=== PATIENT | male | born 1960 | race Caucasian/White ===

== ENCOUNTER 2019-02-13 20:45 | Inpatient (IN) | payer OTHER ==
[~2019-02-13] VITALS: Ht 165.1 cm; Wt 77.1 kg
[~2019-02-13 20:45] MED LIST: AMLO5TAB4 PO; ASPI-817 PO; ATOR20TA38 PO; BUPR300T4 PO; DOCU250C58 PO; DORZ10DR5 BOTH EYES; DULO30CA47 PO; HYDR-845 PO; HYDR25TA6 PO; INSU100I33 SC; ISOS30TA67 PO; LATA2.5D2 BOTH EYES; LISI10TA2 PO; METO-429 PO; NICO-546 TD; NICO2GUM46 BUCCAL; NOVO3I SC; TIMO5DRO30 BOTH EYES
[2019-02-13] MEDS ORDERED: SOD CHLORIDE 0.9% 750 ML IV ONE (21:00)
--- NOTE | 2019-02-13 21:10 | ERD ---
ER Documentation Chief Complaint Chief Complaint [id number] fr bus stop: 10d of 'not feeling well', no appet, NV. FS>100 in rig HPI 58-year-old male history of diabetes was found to have a stop today patient states he has been feeling weak for the past several days. States he is diabetic. Unclear if he is compliant with his medications. Patient denies any nausea or vomiting but does endorse shortness of breath, denies any chest pain, abdominal pain dysuria or diarrhea. No recent travel or infections or antibiotics. Per EMS his blood glucose was read as extremely high in the field. ROS All systems reviewed and are negative except as per history of present illness. Allergies Allergies: Coded Allergies: Penicillins (Verified Allergy, Unknown, 02/13/19) PMhx/Soc Medical and Surgical Hx: pt denies Surgical Hx Hx Cardiac Disorders: Yes (HTN, cholesterol) Hx Alcohol Use: No Hx Substance Use: No Hx Tobacco Use: Yes Smoking Status: Current every day smoker Physical Exam Vitals Vital Signs Date Temp Pulse Resp B/P (MAP) Pulse Ox O2 O2 Flow FiO2 Time Delivery Rate 02/13/19 98.1 96 20 92/61 (71) 94 20:53 Physical Exam Const: No acute distress Head: Atraumatic Eyes: Normal Conjunctiva ENT: Normal External Ears, Nose and Mouth. Neck: Full range of motion. No meningismus. Resp: Clear to auscultation bilaterally Cardio: Regular rate and rhythm, no murmurs Abd: Soft, non tender, non distended. Normal bowel sounds Skin: No petechiae or rashes Back: No midline or flank tenderness Ext: No cyanosis, or edema Neur: Awake and alert Psych: Normal Mood and Affect Result Diagram: 02/13/19210802/13/192108 Results 24 hrs Laboratory Tests Test 02/13/19 20:57 02/13/19 21:09 02/13/19 21:13 Blood Gas Specimen Source Blood venous Arterial Blood Date Drawn 02/13/2019 9:03:41 PM Arterial Blood Gas VENOUS LINE Puncture Site Evgeny Test ACCEPTAB Venous Blood pH 7.341 Venous Blood pCO2 31.5 mmHG (Temp Corrected) Venous Blood pO2 36.9 mmHG (Temp Corrected) Venous Blood HCO3 16.7 mmol/L Venous Blood Oxygen 68.7 mmHG Saturation Venous Blood Base Excess -7.8 mmol/L Venous Blood Total Hemoglobin 15.5 g/dl Venous Blood Oxyhemoglobin 66.8 % Venous Blood Methemoglobin 0.2 % Carboxyhemoglobin 2.5 % Blood Gas Temperature 37.0 C Blood Gas Modality ROOM AIR FiO2 21.0 % Blood Gas Notified Whom MM Blood Gas Notified Time 02/13/2019 9:09:36 PM White Blood Count 6.0 10^3/ul Red Blood Count 4.74 10^6/ul Hemoglobin 14.7 g/dl Hematocrit 43.2 % Mean Corpuscular Volume 91.1 fl Mean Corpuscular Hemoglobin 31.0 pg Mean Corpuscular 34.0 g/dl Hemoglobin Concent Red Cell Distribution Width 11.9 % Platelet Count 153 10^3/UL Mean Platelet Volume 11.7 fl Immature Granulocytes % 0.700 % Neutrophils % 58.6 % Lymphocytes % 33.2 % Monocytes % 6.7 % Eosinophils % 0.5 % Basophils % 0.3 % Nucleated Red Blood Cells % 0.0 /100WBC Immature Granulocytes # 0.040 10^3/ul Neutrophils # 3.5 10^3/ul Lymphocytes # 2.0 10^3/ul Monocytes # 0.4 10^3/ul Eosinophils # 0.0 10^3/ul Basophils # 0.0 10^3/ul Nucleated Red Blood Cells # 0.0 10^3/ul Sodium Level 127 mmol/L Potassium Level 3.5 mmol/L Chloride Level 80 mmol/L Carbon Dioxide Level 16 mmol/L Anion Gap 31 Blood Urea Nitrogen 22 mg/dl Creatinine 1.50 mg/dl Est Glomerular Filtrat 48 mL/min Rate mL/min Glucose Level 835 mg/dl Calcium Level 9.2 mg/dl Phosphorus Level 4.3 mg/dl Magnesium Level 2.1 mg/dl Bedside Glucose > 595 mg/dL Current Medications Medications Dose Sig/Suzanne Start Time Status Last (Trade) Ordered Route PRN Stop Time Admin Dose Reason Admin Sodium 750 ml @ ONCE ONCE 02/13/19 DC 02/13/19 Chloride 750 mls/hr IV 21:00 02/13/19 21:12 21:59 Potassium 1,000 ml @ Q0M IV 02/13/19 DC Chloride/Sodi 0 mls/hr 22:08 02/13/19 um Chloride 22:11 Potassium 1,000 ml @ Q0M IV 02/13/19 DC Chloride/Dext 0 mls/hr 22:08 02/13/19 diana/ Sod Cl 22:11 Insulin 101 ml @ ER DKA 02/13/19 DC Human 7.58 mls/hr PROTOCOL IV 22:30 02/13/19 Regular 100 22:30 unit/ Sodium Chloride Lactated 750 ml @ ONCE ONCE 02/13/19 DC Ringer's 750 mls/hr IV 22:30 02/13/19 22:30 HYPOGLYCEM 02/13/19 DC Miscellaneous HYPOGLYCEMIA PROTOCOL PRN 22:30 02/13/19 TREATMENT XX 22:30 Information .HYPOGLYCEMIA (* PROTOCOL Miscellaneous Pharmacy Order) Dextrose 50 ml Q15M PRN 02/13/19 DC (D50w IV 22:30 02/13/19 Syringe) .DECREASED 22:30 GLUCOSE Dextrose 25 ml Q15M PRN 02/13/19 DC (D50w IV 22:30 02/13/19 Syringe) .DECREASED 22:30 GLUCOSE Procedures/MDM 58-year-old male presenting with weakness and hyperglycemia on labs indicating DKA with elevated anion gap and low bicarb. Will initiate insulin as patient's potassium is above 3.3 fluids and serial lab exams. Will admit patient to ICU. Patient is hemodynamic stable. No clear etiology of trigger unclear if patient is compliant with insulin. No evidence of infection on history or exam JESSICA BILLS MD Feb 13, 2019 21:10
[2019-02-13] MEDS ORDERED: D10/0.45% NACL + KCL 30 MEQ 1,000 ML IV SCH ×2 (22:08→22:12)
[2019-02-13] MEDS ORDERED: NS + KCL 30 MEQ 1,000 ML IV SCH ×2 (22:08→22:12)
[2019-02-13] MEDS ORDERED: DEXTROSE 50% 50 ML SYRINGE IV PRN ×4 (22:30)
[2019-02-13] MEDS ORDERED: INSULIN REGULAR, HUMAN 100 UNIT in SOD CHLORIDE 0.9% 100 ML IV SCH ×4 (22:30)
[2019-02-13] MEDS ORDERED: LACTATED RINGER'S 750 ML IV ONE ×2 (22:30)
[2019-02-14] MEDS ORDERED: CALCIUM GLUCONATE 10% 1 GM in SOD CHLORIDE 0.9% 100 ML IVPB ONE (01:23)
[2019-02-14] MEDS ORDERED: NS + KCL 40 MEQ 1,000 ML IV SCH (01:23)
[2019-02-14] MEDS ORDERED: D10/0.45% NACL + KCL 30 MEQ 1,000 ML IV SCH (01:23)
[2019-02-14] MEDS ORDERED: SOD CHLORIDE 0.9% 1,000 ML IV SCH (01:23)
[2019-02-14] MEDS ORDERED: DEXTROSE 10%/0.45% NACL 1,000 ML IV SCH (01:23)
[2019-02-14] MEDS ORDERED: CALCIUM GLUCONATE 10% 2 GM in SOD CHLORIDE 0.9% 100 ML IVPB ONE (01:23)
[2019-02-14] MEDS ORDERED: D10/0.45% NACL + KCL 40 MEQ 1,000 ML IV SCH (01:23)
[2019-02-14] MEDS ORDERED: SODIUM PHOSPHATE 30 MMOL in SOD CHLORIDE 0.9% 250 ML IV ONE (01:23)
[2019-02-14] MEDS ORDERED: NS + KCL 30 MEQ 1,000 ML IV SCH (01:23)
[2019-02-14] MEDS ORDERED: SODIUM PHOSPHATE 15 MMOL in SOD CHLORIDE 0.9% 250 ML IV ONE (01:23)
[2019-02-14] MEDS ORDERED: MAGNESIUM SULFATE 2 GM/50 ML 50 ML IVPB ONE ×2 (01:30→15:00)
[2019-02-14] MEDS ORDERED: MAGNESIUM SULFATE 1 GM/D5W 100 ML IVPB ONE (01:30)
[2019-02-14] MEDS ORDERED: POTASSIUM CHLORIDE 50 ML IVPB PRN (01:30)
[2019-02-14] MEDS ORDERED: INSULIN REGULAR, HUMAN 100 UNIT in SOD CHLORIDE 0.9% 100 ML IV SCH ×2 (01:30)
[2019-02-14] MEDS ORDERED: DEXTROSE 50% 50 ML SYRINGE IV PRN ×4 (01:30→19:30)
--- NOTE | 2019-02-14 01:40 | QN ---
Documentation Comment H&P dict a/p 1. dka, likely related to poor medication adherence MARY KATE TORRES MD Feb 14, 2019 01:40
--- NOTE | 2019-02-14 03:09 | HP ---
DATE OF ADMISSION: 02/13/2019 CHIEF COMPLAINT: Weakness. HISTORY OF PRESENT ILLNESS: The patient presents to the emergency room at [facility] with a 10-day history of generally feeling unwell with weakness, nausea, abdominal pain. He states that th is has been getting somewhat worse and he went to see his regular doctor and was referred here to the emergency room. PAST MEDICAL HISTORY: Significant for high blood pressure, hyperlipidemia, diabetes. MEDICATIONS: As an outpatient, the patient takes several, but he does not know their names. ALLERGIES: PENICILLIN. SOCIAL HISTORY: The patient lives at home in [place] by himself. Independent of activities of luis y living, not driving. Denies illicit drug use. States he smokes approximately half pack per day, o ccasional alcohol, does not use a cane or walker. FAMILY HISTORY: Noncontributory. REVIEW OF SYSTEMS: Five systems reviewed and found not to be revealing. PHYSICAL EXAMINATION: VITAL SIGNS: Blood pressure is 103/76, pulse rate 94, respirations 19, temperature 98.5, satting 100 % on room air. GENERAL: Pleasant man in no acute distress. Alert and oriented x3. HEENT: Normocephalic, atraumatic without evident scleral icterus, perioral cyanosis. Mucous membran es are moist. NECK: Soft and supple without masses. No evidence of jugular venous distention or carotid bruits. CHEST: Clear to auscultation and percussion bilaterally. HEART: Regular rate and rhythm, S1-S2, no added sounds. ABDOMEN: Soft, nontender, nondistended without palpable hepatosplenomegaly. EXTREMITIES: Without clubbing, cyanosis or edema. SKIN: Without rashes. NEUROLOGIC: Grossly intact. LABORATORY STUDIES: Reveal a hemoglobin of 14.7 g/dL, white count of 6000, platelets of 153,000. So dium 127, potassium 3.5, chloride 83, bicarbonate 18, BUN 20, creatinine 1.27, glucose is greater shane n 600. UA shows 2+ ketones, 3+ glucose, but no signs of infection. Venous blood gas reveals a pH of 7.314, PCO2 of 35, PO2 of 32. ASSESSMENT AND PLAN: Diabetic ketoacidosis. Begin treatment for protocol, aggressive IV hydration. Dictated By: MARY KATE TORRES MD RER/NTS Conf#: [id number] DID#: [id number] CC: JESSICA BILLS MD;*End*
[2019-02-14] MEDS: POTASSIUM CHLORIDE (SR) 20 MEQ TAB PO SCH ×4 (07:38→15:00)
[2019-02-14] MEDS: NPH, HUMAN INSULIN ISOPHANE 3ML VIAL SC SCH ×3 (08:20→21:16)
[2019-02-14] MEDS: INSULIN ASPART [NOVOLOG] 3 ML PEN SC SCH ×4 (12:14→21:16)
[2019-02-14] MEDS: ACCU-CHEK XX SCH ×5 (13:27→21:04)
[2019-02-14 16:00] VITALS: BP 94/69; PULSE 89; RESP 20
[2019-02-14] MEDS ORDERED: SODIUM PHOSPHATE 15 MMOL in SOD CHLORIDE 0.9% 250 ML IVPB ONE (16:00)
[2019-02-14 16:10] VITALS: Ht 165.1 cm; Wt 77.1 kg
[2019-02-14] MEDS: SOD CHLORIDE 0.9% 1,000 ML IV SCH (17:18)
[2019-02-14] MEDS ORDERED: GLUCAGON 1 MG INJ IM PRN (19:30)
[2019-02-14] MEDS ORDERED: GLUCOSE GEL 15 GRAM TUBE PO PRN ×2 (19:30)
[2019-02-14] MEDS ORDERED: GLUCOSE GEL 15 GRAM TUBE BUCCAL PRN (19:30)
[2019-02-14 20:00] VITALS: BP 109/69; PULSE 98; RESP 18
[2019-02-14] MEDS ORDERED: NPH, HUMAN INSULIN ISOPHANE 3ML VIAL SC ONE (20:20)
[2019-02-14] MEDS: NACL 0.9% 3 ML SYG IV SCH (21:18)
[2019-02-14] MEDS ORDERED: ONDANSETRON 4 MG INJ IV PRN (21:30)
[2019-02-15] VITALS: BP 107/70; PULSE 99; RESP 19
[2019-02-15] MEDS ORDERED: NPH, HUMAN INSULIN ISOPHANE 3ML VIAL SC SCH (01:30)
[2019-02-15] MEDS: ACCU-CHEK XX SCH ×6 (01:30→21:31)
[2019-02-15] MEDS: INSULIN ASPART [NOVOLOG] 3 ML PEN SC SCH ×6 (01:42→21:30)
[2019-02-15] MEDS: SOD CHLORIDE 0.9% 1,000 ML IV SCH ×3 (02:00→23:28)
[2019-02-15 03:50] VITALS: BP 118/74; PULSE 98; RESP 18
[2019-02-15] MEDS: NACL 0.9% 3 ML SYG IV SCH ×3 (06:05→22:08)
[2019-02-15 07:20] VITALS: BP 123/72; PULSE 82; RESP 16
[2019-02-15] MEDS: NPH, HUMAN INSULIN ISOPHANE 3ML VIAL SC SCH (08:53)
[2019-02-15 11:35] VITALS: BP 120/73; PULSE 75; RESP 16
--- NOTE | 2019-02-15 11:59 | PN ---
Date/Time of Note Date/Time of Note DATE: 02/15/19 TIME: 11:57 Assessment/Plan VTE Prophylaxis Risk score (from Ns)>0 risk: 1 [place] [facility] contraindicated: other Pharmacological prophylaxis: LMWH Lines/Catheters IV Catheter Type (from Nrs): Saline Lock Assessment/Plan Assessment/Plan 1. dka resolved (b) change NPH to lantus this PM (c) cont accucheck, await dm education for insulin and glucometer admin 2. trial of diet Result Diagram: 02/15/1933 02/15/19632 Results 24hrs Laboratory Tests Test 02/14/19 12:28 02/14/19 13:23 02/14/19 13:26 02/14/19 14:29 Bedside Glucose 381 H 346 H 289 H Sodium Level 134 L Potassium Level 3.9 Chloride Level 104 Carbon Dioxide Level 21 Anion Gap 9 Blood Urea Nitrogen 11 Creatinine 0.62 Est Glomerular Filtrat > 60 Rate mL/min Glucose Level 307 H Calcium Level 7.7 L Phosphorus Level 1.4 L Magnesium Level 1.6 L Test 02/14/19 15:28 02/14/19 17:16 02/14/19 21:06 02/15/19 01:29 Bedside Urine pH (LAB) 5.5 Bedside Urine Protein Negative (LAB) Bedside Urine Glucose 0.50% H (UA) Bedside Urine Ketones 2+ H (LAB) Bedside Urine Blood Negative Bedside Urine Nitrite Negative (LAB) Bedside Urine Negative Leukocyte Esterase (L Bedside Glucose 241 H 263 H 210 Test 02/15/19 05:58 02/15/19 06:33 02/15/19 08:47 Bedside Glucose 196 185 White Blood Count 4.8 Red Blood Count 4.35 L Hemoglobin 13.4 L Hematocrit 39.4 L Mean Corpuscular Volume 90.6 Mean Corpuscular 30.8 Hemoglobin Mean Corpuscular 34.0 Hemoglobin Concent Red Cell Distribution 12.2 Width Platelet Count 90 #L Mean Platelet Volume 11.3 H Immature Granulocytes % 0.600 H Neutrophils % 61.0 Lymphocytes % 31.6 Monocytes % 5.4 Eosinophils % 1.0 Basophils % 0.4 Nucleated Red Blood 0.0 Cells % Immature Granulocytes # 0.030 Neutrophils # 2.9 Lymphocytes # 1.5 Monocytes # 0.3 Eosinophils # 0.1 Basophils # 0.0 Nucleated Red Blood 0.0 Cells # Sodium Level 137 Potassium Level 3.2 L Chloride Level 102 Carbon Dioxide Level 22 Anion Gap 13 Blood Urea Nitrogen 7 Creatinine 0.65 Est Glomerular Filtrat > 60 Rate mL/min Glucose Level 198 # Calcium Level 8.8 Phosphorus Level 2.1 L Magnesium Level 1.5 L Subjective 24 Hr Interval Summary Free Text/Dictation no complaints at this time, states that he ahs eaten (though nursing says vomiting?) Exam/Review of Systems Exam Vitals Vital Signs Date Temp Pulse Resp B/P (MAP) Pulse Ox O2 O2 Flow FiO2 Time Delivery Rate 02/15/19 98.0 75 16 120/73 98 11:35 (89) 02/15/19 Nasal 2.0 07:20 Cannula Intake and Output 02/14/19 02/14/19 02/15/19 1515:00 23:00 07:00 IntakeIntake Total 2725.8 ml 1300 ml BalanceBalance 2725.8 ml 1300 ml Exam nad, ctab, rrr, soft nt Results Results 24hrs Laboratory Tests Test 02/14/19 12:28 02/14/19 13:23 02/14/19 13:26 02/14/19 14:29 Bedside Glucose 381 H 346 H 289 H Sodium Level 134 L Potassium Level 3.9 Chloride Level 104 Carbon Dioxide Level 21 Anion Gap 9 Blood Urea Nitrogen 11 Creatinine 0.62 Est Glomerular Filtrat > 60 Rate mL/min Glucose Level 307 H Calcium Level 7.7 L Phosphorus Level 1.4 L Magnesium Level 1.6 L Test 02/14/19 15:28 02/14/19 17:16 02/14/19 21:06 02/15/19 01:29 Bedside Urine pH (LAB) 5.5 Bedside Urine Protein Negative (LAB) Bedside Urine Glucose 0.50% H (UA) Bedside Urine Ketones 2+ H (LAB) Bedside Urine Blood Negative Bedside Urine Nitrite Negative (LAB) Bedside Urine Negative Leukocyte Esterase (L Bedside Glucose 241 H 263 H 210 Test 02/15/19 05:58 02/15/19 06:33 02/15/19 08:47 Bedside Glucose 196 185 White Blood Count 4.8 Red Blood Count 4.35 L Hemoglobin 13.4 L Hematocrit 39.4 L Mean Corpuscular Volume 90.6 Mean Corpuscular 30.8 Hemoglobin Mean Corpuscular 34.0 Hemoglobin Concent Red Cell Distribution 12.2 Width Platelet Count 90 #L Mean Platelet Volume 11.3 H Immature Granulocytes % 0.600 H Neutrophils % 61.0 Lymphocytes % 31.6 Monocytes % 5.4 Eosinophils % 1.0 Basophils % 0.4 Nucleated Red Blood 0.0 Cells % Immature Granulocytes # 0.030 Neutrophils # 2.9 Lymphocytes # 1.5 Monocytes # 0.3 Eosinophils # 0.1 Basophils # 0.0 Nucleated Red Blood 0.0 Cells # Sodium Level 137 Potassium Level 3.2 L Chloride Level 102 Carbon Dioxide Level 22 Anion Gap 13 Blood Urea Nitrogen 7 Creatinine 0.65 Est Glomerular Filtrat > 60 Rate mL/min Glucose Level 198 # Calcium Level 8.8 Phosphorus Level 2.1 L Magnesium Level 1.5 L Medications Medication Current Medications Insulin Aspart (Novolog Insulin Pen) NOVOLOG *MODERATE* ALGORI... Q4H SC Last administered on 02/15/19 08:53; Admin Dose 4 UNIT; Start 02/14/19 at 01:30 Diagnostic Test (Pha) (Accu-Chek) 1 ea Q4 XX Last administered on 02/15/19 08:48; Admin Dose 1 EA; Start 02/14/19 at 17:00 Sodium Chloride 1,000 ml @ 100 mls/hr Q10H IV Last administered on 02/15/19 08:56; Admin Dose 100 MLS/HR; Start 02/14/19 at 16:00 IV Flush (NS 3 ml) 3 ml Q8 IV Last administered on 02/15/19 06:05; Admin Dose 3 ML; Start 02/14/19 at 22:00 Insulin Human NPH (Humulin N) 12 unit Q12H SC Last administered on 02/15/19 08:53; Admin Dose 12 UNIT; Start 02/14/19 at 20:20 Miscellaneous Information 1 ea NOTE XX ; Start 02/14/19 at 19:30 Glucose (Glutose) 15 gm Q15M PRN PO DECREASED GLUCOSE; Start 02/14/19 at 19:30 Glucose (Glutose) 22.5 gm Q15M PRN PO DECREASED GLUCOSE; Start 02/14/19 at 19:30 Dextrose (D50w Syringe) 25 ml Q15M PRN IV DECREASED GLUCOSE; Start 02/14/19 at 19:30 Dextrose (D50w Syringe) 50 ml Q15M PRN IV DECREASED GLUCOSE; Start 02/14/19 at 19:30 Glucagon (Glucagen) 1 mg Q15M PRN IM DECREASED GLUCOSE; Start 02/14/19 at 19:30 Glucose (Glutose) 15 gm Q15M PRN BUCCAL DECREASED GLUCOSE; Start 02/14/19 at 19:30 Ondansetron HCl (Zofran Inj) 4 mg Q4H PRN IV NAUSEA AND/OR VOMITING; Start 02/14/19 at 21:30 Potassium Phosphate 15 mm/ Sodium Chloride 255 ml @ 63.75 mls/ hr ONCE ONCE IVPB ; Start 02/15/19 at 13:00; Stop 02/15/19 at 16:59 Magnesium Sulfate 3 gm/Dextrose 106 ml @ 35.333 mls/ hr ONCE ONCE IVPB ; Start 02/15/19 at 13:00; Stop 02/15/19 at 15:59 MARY KATE TORRES MD Feb 15, 2019 11:59
[2019-02-15] MEDS: POTASSIUM CHLORIDE (SR) 20 MEQ TAB PO SCH ×3 (12:58→21:07)
[2019-02-15] MEDS ORDERED: MAGNESIUM SULFATE 3 GM in DEXTROSE 5% 100 ML IVPB ONE (13:00)
[2019-02-15] MEDS ORDERED: POTASSIUM PHOSPHATE 15 MM in SOD CHLORIDE 0.9% 250 ML IVPB ONE (13:00)
[2019-02-15] MEDS: ENOXAPARIN 40 MG/0.4 ML SYG SC SCH (13:16)
[2019-02-15 20:00] VITALS: BP 113/74; PULSE 97; RESP 18
[2019-02-15] MEDS ORDERED: INSULIN GLARGINE [LANTus] (100 UNITS/ML) SYG SC SCH (20:00)
[2019-02-16] VITALS: BP 113/73; PULSE 82; RESP 18
[2019-02-16 03:52] VITALS: BP 118/71; PULSE 78; RESP 18
[2019-02-16] MEDS: NACL 0.9% 3 ML SYG IV SCH (06:06)
[2019-02-16 07:32] VITALS: BP 117/74; PULSE 77; RESP 18
[2019-02-16] MEDS: SOD CHLORIDE 0.9% 1,000 ML IV SCH ×2 (07:49→17:30)
[2019-02-16] MEDS: ACCU-CHEK XX SCH ×3 (07:49→17:32)
[2019-02-16] MEDS: INSULIN ASPART [NOVOLOG] 3 ML PEN SC SCH ×3 (08:08→17:29)
[2019-02-16] MEDS: ENOXAPARIN 40 MG/0.4 ML SYG SC SCH ×2 (08:17→08:53)
[2019-02-16] MEDS ORDERED: POTASSIUM CHLORIDE (SR) 20 MEQ TAB PO STA (08:55)
--- NOTE | 2019-02-16 11:13 | PDOCDIS ---
Discharge Instructions CONDITION [id number] Patient Condition: [id number] Good HOME CARE INSTRUCTIONS: [id number] Diet Instructions: [id number] Activity Restrictions: [id number] No Restrictions FOLLOW UP/APPOINTMENTS Follow-up Plan pcp 1 week Endocrinlogy 1 week CHANEL GREGORY MD Feb 16, 2019 11:13
[2019-02-16 11:23] VITALS: BP 113/78; PULSE 114; RESP 19
[2019-02-16 14:55] VITALS: BP 123/79; PULSE 90; RESP 19
[2019-02-16] MEDS ORDERED: INSULIN ASPART [NOVOLOG] 3 ML PEN SC SCH (17:55)
--- NOTE | 2019-02-16 19:41 | DS ---
DATE OF ADMISSION: 02/14/2019 DATE OF DISCHARGE: 02/16/2019 DISCHARGE DIAGNOSES: 1. A 58-year-old male with new-onset diabetic ketoacidosis, resolved. 2. Hypertension. 3. Hyperlipidemia. HOSPITAL COURSE: A 58-year-old male presented to emergency room with 10-day history of generalized w eakness associated with abdominal pain and nausea. Initial evaluation in the emergency room revealed evidence of diabetic ketoacidosis. Initial glucose was as high as 716. The patient underwent a DKA protocol with resolution of symptoms. His blood sugar was improved. Hyponatremia was also resolved . The patient denies any previous history of DKA and was not aware of his diabetic state. The patie nt was seen in consultation by manager game. He was strongly encouraged to adhere to a diabetic diet and comply with insulin therapy. The patient is in a stable condition for discharge. MEDICATIONS ON DISCHARGE: 1. Basaglar insulin 28 units subq daily. 2. NovoLog insulin 6 units with each meal. 3. Amlodipine 5 mg daily. 4. Aspirin 81 mg daily. 5. Lipitor 20 mg at bedtime. 6. Bupropion 300 mg daily. 7. Dorzolamide eyedrop to both eyes daily. 8. Duloxetine HCL 30 mg daily. 9. Hydrochlorothiazide 25 mg daily. 10. Isosorbide mononitrate 30 mg daily. 11. Latanoprost eyedrops to both eyes daily. 12. Lisinopril 10 mg daily. 13. Metoprolol 50 mg b.i.d. 14. Nicotine patch daily. 15. Timolol eyedrops to both eyes b.i.d. DISCHARGE INSTRUCTION: 1. Follow up with PCP in 1 week. 2. Follow up with endocrinology as outpatient. 3. Adhere to a low-sodium, diabetic diet. 4. The patient was also given prescription for glucometer and test strips. Dictated By: CHANEL ABRAMS/CAIN Conf#: [id number] DID#: [id number] CC: MARY KATE TORRES MD;*EndCC*
[2019-02-17] MEDS ORDERED: INSULIN ASPART [NOVOLOG] 3 ML PEN SC SCH ×2 (07:55→11:50)
== END 2019-02-16 19:17 | disposition home health service (06) | DRG 639 ==
LOC: E/R 20:45 → TEL 02-14 06:15 → EDBEDREQSVC 02-14 14:05
PROVIDERS: ADMIT Legal Medicine; ATTEND Legal Medicine
PROC: 4A133R1 Monitoring of Arterial Saturation, Peripheral, Percutaneous Approach (ICD-10-PCS; principal; 2019-02-13)
DX: E11.10 Type 2 diabetes mellitus with ketoacidosis without coma (principal); E78.5 Hyperlipidemia, unspecified; I10 Essential (primary) hypertension; F17.210 Nicotine dependence, cigarettes, uncomplicated; Z88.0 Allergy status to penicillin
CPT/HCPCS: 36415; 80048; 80053; 81003; 82803; 82962; 83036; 83735; 84100; 84484; 85025; 93005; 96361; 96365; 96366; 96368; J0610; J1650; J1815; J3475; J3480; J7030; J7050; J7120

== ENCOUNTER 2019-03-12 15:15 | Emergency (ER) | payer OTHER ==
[~2019-03-12] VITALS: Ht 160 cm; Wt 75.7 kg
[~2019-03-12 15:15] MED LIST changes: -HYDR-845 PO; -NICO2GUM46 BUCCAL
[2019-03-12 15:29] VITALS: BP 141/74; PULSE 61; RESP 18; Ht 160 cm; Wt 75.7 kg
== END 2019-03-12 15:55 | disposition home or self-care (01) ==
LOC: E/R 15:15
DX: I10 Essential (primary) hypertension (principal); J44.9 Chronic obstructive pulmonary disease, unspecified; F17.210 Nicotine dependence, cigarettes, uncomplicated; E11.9 Type 2 diabetes mellitus without complications; Z79.4 Long term (current) use of insulin; Z79.82 Long term (current) use of aspirin
CPT/HCPCS: 99282